=== PATIENT | female | born 1970 | race Caucasian/White ===

== ENCOUNTER → 2017-04-30 | Outpatient (CLI) | payer BC ==
[2017-04-30 15:26] LABS: Basophils # (A) 0.1 k/uL (0-0.2); Basophils % (A) 1 %; CH 29.1; CHCM 32.8; Eosinophils # (A) 0.6 k/uL (0-0.7); Eosinophils % (A) 9 %; HCT 38.3 % (34.0-46.0); HDW 2.25; HGB 12.8 gm/dL (11.4-16.0); Luc # (Auto) 0.16; Luc % (Auto) 2; Lymphocytes # (A) 1.8 k/uL (1.0-4.8); Lymphocytes % (A) 26 %; MCH 29.8 pg (25.0-35.0); MCHC 33.4 g/dL (31.0-37.0); MCV 89.2 fL (80.0-100.0); Mean Platelet Volume 7.6; Monocytes # (A) 0.4 k/uL (0-1.0); Monocytes % (A) 6 %; Neutrophils # (A) 3.8 k/uL (1.3-7.7); Neutrophils % (A) 56 %; RDW 14.1 % (11.5-15.5); WBC 6.8 k/uL (3.8-10.6); WBC (Perox) 6.94
[2017-04-30 15:27] LABS: Appearance,Urine Clear (Clear); Bilirubin,Urine Negative (Negative); Glucose,Urine (UA) Negative (Negative); Ketones,Urine Negative (Negative); Leukocyte Esterase,Urine Negative (Negative); Nitrite,Urine Negative (Negative); PH, Urine 7.5 (5.0-8.0); Protein,Urine Negative (Negative); Specific Gravity,Urine 1.002 (1.001-1.035); UA Billing (MACRO vs. MICRO) CHEM; Urobilinogen,Urine <2.0 mg/dL (<2.0)
[2017-04-30 15:35] LABS: C Reactive Protein <5.0 mg/L (<10.0); Creatine Kinase <20 U/L (30-135); Non-African American GFR(MDRD) >60 (>60 ml/min/1.73 sqM)
[2017-04-30 18:58] LABS: T3, Uptake 30 % (23-37)
[2017-04-30 19:38] LABS: ANA w/Reflex to Titer NEGATIVE (NEGATIVE); RNP AB Interpretation NEGATIVE (NEGATIVE); Scleroderma SC-70 Ab Interp NEGATIVE (NEGATIVE)
[2017-04-30 22:06] LABS: Erythrocyte Sedimentation Rate 7 mm/hr (0-20)
[2017-05-01 11:20] LABS: T4, Total 10.2 ug/dL (4.5 - 10.9)
[2017-05-02 13:25] LABS: Glucose-6-Phosphate Dehydrogen 11.9 U/g Hgb (7.0-20.5)
== END | disposition home or self-care (01) ==
LOC: LABWHC1 14:23
PROVIDERS: ATTEND Internal Medicine Rheumatology
DX: M05.79 Rheumatoid arthritis with rheumatoid factor of multiple sites without organ or systems involvement (principal); M79.7 Fibromyalgia; R00.2 Palpitations; I73.00 Raynaud's syndrome without gangrene
CPT/HCPCS: 36415; 81003; 82550; 82565; 82955; 84436; 84439; 84443; 84479; 85025; 85613; 85652; 85730; 86038; 86140; 86147; 86160; 86225; 86235; 86880

== ENCOUNTER → 2018-10-29 | Outpatient (CLI) | payer BC ==
--- NOTE | 2018-10-29 13:50 | XR ---
Cervical spine HISTORY: Neck pain MR shoulder pain 5 views of the cervical spine There is no evident foraminal encroachment with the exception of C6-7 due to lateral extension of end plates, uncovertebral joint arthropathy. Multilevel spondylosis is present, minimal retrolisthesis gr jose 1 C5-6, C6-7 with associated loss of disc height 4 feet 5 inches and C5-6. Prevertebral soft tiss ues are normal. Cervical vertebral bodies show preserved height and bone mineralization. Some underly ing facet arthropathy change is suspected. IMPRESSION: Degenerative disc disease and facet arthropathy.
--- NOTE | 2018-10-29 13:57 | XR ---
Right shoulder HISTORY: Right shoulder pain 2 views of the right shoulder No comparisons There is acromioclavicular joint arthropathy. Alignment and bone mineralization, joint spaces maintai bettie. Right lung apex as visualized is normal. IMPRESSION: Acromioclavicular joint arthropathy.
== END | disposition home or self-care (01) ==
LOC: RADXRYALE 10:33
PROVIDERS: ATTEND Physician Assistant Medical
DX: M50.30 Other cervical disc degeneration, unspecified cervical region (principal); M46.92 Unspecified inflammatory spondylopathy, cervical region; M19.011 Primary osteoarthritis, right shoulder
CPT/HCPCS: 72050

== ENCOUNTER → 2019-06-17 | Outpatient (CLI) | payer BC ==
--- NOTE | 2019-06-17 09:21 | XR ---
EXAMINATION TYPE: XR cervical spine comp DATE OF EXAM: 06/17/2019 COMPARISON: NONE HISTORY: Pain TECHNIQUE: Four views are submitted. FINDINGS: The odontoid is intact. There are no compression deformities. The prevertebral soft tissue structur es are within normal limits. There is multilevel mild to moderate degenerative disc disease with sev ere changes at C5-C6. There is a retrolisthesis of C5 on C6. Anterior hypertrophic spurring seen at C 5-6 and C6-C7. Foraminal encroachment C5-C6 bilaterally. IMPRESSION: 1. Multilevel degenerative disc disease is severe changes at C5-C6 with posterior retrolisthesis. Rec ommend follow-up MRI. Bilateral foraminal encroachment noted and canal stenosis suspected..
== END | disposition home or self-care (01) ==
LOC: RADXRYALE 08:53
PROVIDERS: ATTEND Physician Assistant Medical
DX: M43.12 Spondylolisthesis, cervical region (principal); M50.322 Other cervical disc degeneration at C5-C6 level
CPT/HCPCS: 72050